=== PATIENT | female | born 2000 | race Hispanic/Latino ===

== ENCOUNTER 2023-01-27 12:26 | Outpatient (CLI) | payer OTHER | END 2023-01-27 12:27 | disposition home or self-care (01) | LOC: CSHULT 12:26 | PROVIDERS: ATTEND Nurse Practitioner Women's Health | DX: Z34.82 Encounter for supervision of other normal pregnancy, second trimester (principal); Z3A.21 21 weeks gestation of pregnancy | CPT/HCPCS: 76805 ==

== ENCOUNTER 2023-06-01 09:31 | Inpatient (IN) | payer MEDICAID, OTHER ==
[2023-06-01] MEDS: Lactated Ringer's 1,000 ML IV SCH (10:10)
[2023-06-01 10:20] VITALS: BMI 30.5
[2023-06-01] MEDS ORDERED: Carboprost 250 MCG/ML AMP IM PRN (10:34)
[2023-06-01] MEDS ORDERED: Tranexamic Acid 1,000 MG/10 ML VIAL IVP PRN (10:34)
[2023-06-01] MEDS ORDERED: hydrALAZINE 20 MG/ML VIAL SLOW IVP PRN ×2 (10:34→20:36)
[2023-06-01] MEDS ORDERED: Ibuprofen 800 MG TAB PO PRN (10:34)
[2023-06-01] MEDS ORDERED: Promethazine HCl 25 MG/ML VIAL IM PRN ×3 (10:34→20:36)
[2023-06-01] MEDS ORDERED: Misoprostol 200 MCG TAB PR PRN (10:34)
[2023-06-01] MEDS ORDERED: Ondansetron PF 4 MG/2 ML Vial IVP PRN ×3 (10:34→20:36)
[2023-06-01] MEDS ORDERED: HYDROcodone/Acetaminophen 5/325 mg Tablet PO PRN (10:34)
[2023-06-01] MEDS ORDERED: fentaNYL 50 mcg/mL 1 mL Vial SLOW IVP PRN (10:34)
[2023-06-01] MEDS ORDERED: Methylergonovine 0.2 MG/ML VIAL IM PRN (10:34)
[2023-06-01] MEDS ORDERED: Diphenoxylate HCl/Atropine Tablet PO PRN (10:34)
[2023-06-01] MEDS ORDERED: Lidocaine 1% (PF) 30 ML VIAL SC PRN (10:34)
[2023-06-01] MEDS ORDERED: Acetaminophen 500 MG TAB PO PRN (10:34)
[2023-06-01] MEDS ORDERED: Oxytocin 30 units/NS 500 ML 500 ML IV SCH (10:45)
[2023-06-01 10:53] LABS: Hematocrit 31.1 % (34.9-44.5); Hemoglobin 10.2 g/dL (12.0-15.5); Mean Corpuscular HGB CONC 32.8 g/dL (32.0-36.0); Mean Corpuscular Hemoglobin 24.8 pg (27.0-33.0); Mean Corpuscular Volume 75.5 fl (81.6-98.3); Mean Platelet Volume 9.8 fl (7.4-10.4); Platelet Count 260 10x3/uL (150-450); RBC Distribution Width 14.1 % (11.5-14.5); Red Blood Cell (RBC) Count 4.12 10x6/uL (3.90-5.03); White Blood Cell (WBC) Count 7.1 10x3/uL (3.5-10.5)
[2023-06-01 11:34] LABS: Syphilis Antibody Nonreactive (Nonreactive); Syphilis Antibody Index 0.05 S/CO (<1.00 Non-Reactive)
[2023-06-01 11:35] LABS: HBSAg Index 0.25 S/CO (0-0.99); Hep B Surf Ag - L&D Non-Reactive S/CO (NonReactive)
[2023-06-01] MEDS ORDERED: Naloxone HCl 0.4 mg/ml Vial IVP PRN ×2 (12:52)
[2023-06-01] MEDS ORDERED: Lactated Ringer's 500 ML IV PRN (12:52)
[2023-06-01] MEDS ORDERED: Acetaminophen 325 MG TAB PO PRN (12:52)
[2023-06-01] MEDS ORDERED: diphenhydrAMINE 50 MG/ML VIAL IVP PRN (12:52)
[2023-06-01] MEDS ORDERED: ePHEDrine Sulfate 50 MG/10 ML VIAL SLOW IVP PRN (12:52)
[2023-06-01] MEDS ORDERED: Moisturizing Cream (Eucerin) 113 GM JAR TOP PRN (12:52)
[2023-06-01] MEDS ORDERED: Communication Order-Pharmacy FS SCH (13:00)
[2023-06-01] MEDS: fentaNYL/Ropivacaine Epidural 100 ML ONE (13:22)
[2023-06-01] MEDS: fentaNYL 2 mcg/Ropivacaine 0.2% Epidural 100 ML CADD EPIDURAL SCH (13:22)
[2023-06-01] MEDS: Oxytocin 30 units/NS 500 ML 500 ML IV SCH ×2 (14:10→18:26)
[2023-06-01] MEDS ORDERED: Bisacodyl 10 MG SUPP PR PRN (20:36)
[2023-06-01] MEDS ORDERED: Benzocaine-Menthol 82.5 ML CAN TOP PRN (20:36)
[2023-06-01] MEDS ORDERED: Lanolin Ointment 7 GM TUBE TOP PRN (20:36)
[2023-06-01] MEDS ORDERED: Milk Of Magnesia 30 ML UDCUP PO PRN (20:36)
[2023-06-01] MEDS ORDERED: diphenhydrAMINE 25 MG CAP PO PRN (20:36)
[2023-06-01] MEDS: Docusate 100 MG CAP PO SCH (22:14)
[2023-06-01] MEDS: Ibuprofen 800 MG TAB PO SCH (22:14)
[2023-06-01] MEDS: HYDROcodone/Acetaminophen 5/325 mg Tablet PO PRN (22:16)
[2023-06-02] MEDS: Ferrous Sulfate 325 MG TAB PO SCH (08:44)
[2023-06-02] MEDS: Prenatal Vitamin 1 TAB PO SCH (08:44)
[2023-06-02] MEDS: Boostrix 0.5 ML (Tdap) VIAL (>/=7 yrs of age) IM ONE (16:24)
[2023-06-02] MEDS ORDERED: Bupivacaine 0.25% HCL 30 ML VIAL ONE (16:37)
[2023-06-02 16:44] VITALS: BP 106/57; TEMP 98.5
== END 2023-06-02 19:45 | disposition home or self-care (01) | DRG 807 ==
LOC: CSHLD 09:31 → CSHPP 20:10
PROVIDERS: ADMIT Family Medicine; ATTEND Family Medicine
PROC: 10E0XZZ Delivery of Products of Conception, External Approach (ICD-10-PCS; principal; 2023-06-01)
PROC: 10907ZC Drainage of Amniotic Fluid, Therapeutic from Products of Conception, Via Natural or Artificial Opening (ICD-10-PCS; 2023-06-01)
PROC: 0UQMXZZ Repair Vulva, External Approach (ICD-10-PCS; 2023-06-01)
PROC: 3E033XZ Introduction of Vasopressor into Peripheral Vein, Percutaneous Approach (ICD-10-PCS; 2023-06-01)
DX: O71.82 Other specified trauma to perineum and vulva (principal); Z37.0 Single live birth; O48.0 Post-term pregnancy; Z3A.40 40 weeks gestation of pregnancy; O69.81X0 Labor and delivery complicated by cord around neck, without compression, not applicable or unspecified
CPT/HCPCS: 51702; 85027; 86780; 86850; 86900; 86901; 87340; J0665; J2590; J7120